=== PATIENT | male | born 1990 | race Two or more races ===

== ENCOUNTER 2024-02-25 05:31 | Emergency (ER) | payer MEDICAID ==
[~2024-02-25] VITALS: Ht 182.9 cm; Wt 112.8 kg
[~2024-02-25 05:31] MED LIST: TRAM100T32 PO
[2024-02-25 05:55] VITALS: BP 143/97; PULSE 67; RESP 18; TEMP 98; O2SAT 98
[2024-02-25] MEDS ORDERED: IBUP-1456 PO (06:57)
[2024-02-25] MEDS ORDERED: CLIN1CAP70 PO (06:57)
[2024-02-25] MEDS: cefTRIAXone SOD 1,000 MG VL IM ONE (06:59)
== END 2024-02-25 07:26 | disposition home or self-care (01) ==
LOC: ER 05:31
DX: K02.9 Dental caries, unspecified (principal); F15.90 Other stimulant use, unspecified, uncomplicated; Z79.899 Other long term (current) drug therapy
CPT/HCPCS: 96372; 99283; J0696; J7030

== ENCOUNTER 2025-05-27 00:52 | Emergency (ER) | payer SELFPAY ==
[~2025-05-27] VITALS: Ht 182.9 cm; Wt 106.6 kg
[~2025-05-27 00:52] MED LIST changes: +CLIN1CAP70 PO; +IBUP-1456 PO
[2025-05-27 00:54] VITALS: BP 156/77; PULSE 82; RESP 18; TEMP 98; O2SAT 100
[2025-05-27] MEDS: LIDOCAINE W/ EPINEPHRINE 1% 20ML VIAL ID ONE (01:33)
[2025-05-27] MEDS ORDERED: AUG875T PO (02:15)
[2025-05-27] MEDS ORDERED: IBUP-1456 PO (02:15)
--- NOTE | 2025-05-27 02:16 | ED.PDOC ---
Chief Complaint: Laceration Time Seen by MD: 00:55 Primary Care Provider: MAGNO Reviewed Notes: Nurses Notes, Medications, Allergies Allergies: Coded Allergies: NO KNOWN ALLERGIES (Unverified , 11/04/12) Home Meds Active Scripts Ibuprofen (Ibuprofen) 800 Mg Tab, 1 TAB PO TID, #30 TAB Prov:PARKER SAVAGE 02/25/24 Clindamycin Hcl (Clindamycin Hcl) 300 Mg Cap, 1 CAP PO TID, #30 CAP Prov:PARKER SAVAGE 02/25/24 Reported Medications Tramadol Hcl (TRAMADOL HCL ER) 100 Mg Tab, 0 PO 04/19/13 Information Source: Patient Mode of Arrival: Ambulatory Complexity: Complex Laceration Length (cm): 6 Past Medical History PAST MEDICAL HISTORY: Denies Surgical History: Denies all surgeries Family History Family History: Unobtainable Social History Smoker: Non-Smoker Alcohol: Denies ETOH Use Drugs: Marijuana Lives In: Home Was a procedure done? Was a procedure done?: Yes Sedation Sedation?: No Informed consent obtained: Yes Laceration Repair : Anesthetic: Lidocaine, With epi Laceration Repair Prep: Saline, by Irrigation Laceration Repair Wound Comple: epidermis/dermis repair Laceration Repair: Number of sutures (15), Simple, Non-adherent gauze, Gauze Informed consent obtained: Yes Risks, benefits, and alternati: Yes X-Ray, Labs, Meds, VS Vital Signs Date Time Temp Pulse Resp B/P (MAP) Pulse Ox O2 Delivery O2 Flow Rate FiO2 05/27/25 00:54 98.0 82 18 156/77 100 98.0 Time of 2ND Reevaluation: 02:15 Reevaluation 2ND: Improved Patient Education/Counseling: Diagnosis, Treatment, Need For Follow Up Family Education/Counseling: No Family Present Departure 1 Departure Time of Disposition: 02:14 Impression: Primary Impression: Laceration of hand, right Qualified Codes: S61.411A - Laceration without foreign body of right hand, initial encounter Disposition: 01 HOME / SELF CARE / HOMELESS Condition: Stable e-Prescriptions Ibuprofen (Ibuprofen) 800 Mg Tab 800 MG PO Q8HP PRN for 5 Days, #15 TAB Prov: KATIE LAWS [employer] 05/27/25 Amoxicillin & Pot Clavulanate (AUGMENTIN TABLET) 875 Mg Tb 875 MG PO BID for 5 Days, #10 TAB Prov: KATIE LAWS 05/27/25 Discharged With: Self Critical Care Note Critical Care Time?: No Stability Stability form required: No KATIE LAWS May 27, 2025 02:16
== END 2025-05-27 02:23 | disposition home or self-care (01) ==
LOC: ER 00:52
DX: S61.411A Laceration without foreign body of right hand, initial encounter (principal); X58.XXXA Exposure to other specified factors, initial encounter; Y93.89 Activity, other specified; Y92.89 Other specified places as the place of occurrence of the external cause; Y99.8 Other external cause status
CPT/HCPCS: 12002; 99283; A4649